=== PATIENT | female | born 1970 ===

== ENCOUNTER 2018-03-09 10:54 | Emergency (ER) | payer MEDICAID ==
[2018-03-09] MEDS ORDERED: Tetanus/Diphtheria Toxoids 0.5 ml Syringe IM ONE ×2 (11:19→11:24)
[2018-03-09 11:36] VITALS: RESP 16; O2SAT 100
[2018-03-09] MEDS ORDERED: Lidocaine 2% Inj (20ml) INFIL ONE (12:11)
[2018-03-09] MEDS ORDERED: Lidocaine 2% MPF (5 ml) Inj ONE (12:14)
--- NOTE | 2018-03-09 12:25 | C.PDOC ---
History Of Present Illness 47-year-old female, presents to the emergency department with complaints of a laceration to her left foot last night at 8pm. Patient states her cat broke an empty wine bottle, and while walking toward it, she stepped on glass that was in her path. She was seen at an urgent care this morning, where they injected her foot with "numbing medication" and sent to ED for further evaluation. Patient denies numbness/weakness, or any other associated symptoms. No other complaints at this time. Time Seen by Provider: 03/09/18 11:08 Chief Complaint (Nursing): Abnormal Skin Integrity History Per: Patient History/Exam Limitations: no limitations Onset/Duration Of Symptoms: Hrs Current Symptoms Are (Timing): Still Present Past Medical History Reviewed: Historical Data, Nursing Documentation, Vital Signs Vital Signs: Last Vital Signs Temp 98.9 F 03/09/18 14:24 Pulse 76 03/09/18 14:24 Resp 16 03/09/18 14:24 BP 128/74 03/09/18 14:24 Pulse Ox 100 03/09/18 14:24 Surgical History: Cholecystectomy Family History: States: No Known Family Hx - Social History Hx Alcohol Use: No Hx Substance Use: No - Immunization History Hx Tetanus Toxoid Vaccination: No Hx Influenza Vaccination: No Review Of Systems Musculoskeletal: Positive for: Other (laceration, left foot) Physical Exam - Physical Exam Appears: Non-toxic, No Acute Distress Skin: Normal Color, Warm, Dry, No Rash Head: Normacephalic Eye(s): bilateral: PERRL Nose: Normal Lips: Normal Appearing Neck: Normal ROM Respiratory: Other (no acute respiratory distress) Extremity: Normal ROM, Capillary Refill (<2 seconds), No Deformity, No Swelling , Other (3cm irregular, jagged laceration to the plantar aspect of left foot. Neurovascularly intact) Pulses: Left Dorsalis Pedis: Normal, Right Dorsalis Pedis: Normal Neurological/Psych: Oriented x3, Normal Speech ED Course And Treatment O2 Sat by Pulse Oximetry: 100 (RA) Pulse Ox Interpretation: Normal Progress Note: Tetanus shot given. Podiatry resident was paged. Will evaluate pt in ED Medical Decision Making Medical Decision Making: Patient xrays performed at the urgent care which show no fracture, no dislocation, and no foreign body seen. The patient was instructed that the risk of infection are present as the wound is > 12 hours. Also risk microscopic foreign body is possible as well. A dose of IV Ancef 2gm and Clindamycin was given. Wound was irrigated and sutured by the Podiatry resident and case was discussed with Dr. Zheng ([employer] Protector oncall). Disposition - Disposition Referrals: Janette Zheng DPM [Staff Provider] - Disposition: HOME/ ROUTINE Disposition Time: 13:30 Condition: STABLE Additional Instructions: Follow up with the Wildlife [facility] Game Protector in 2 days for wound check without fail. Return if worsened. Prescriptions: Cephalexin [Keflex] 500 mg PO TID #42 capsule Instructions: Laceration Repair Forms: [employer] [employer] (Hebrew) - Clinical Impression Clinical Impression: Foot laceration - Scribe Statement The provider has reviewed the documentation as recorded by the Scribe (Juliet Cho) All medical record entries made by the Scribe were at my direction and personally dictated by me. I have reviewed the chart and agree that the record accurately reflects my personal performance of the history, physical exam, medical decision making, and the department course for this patient. I have also personally directed, reviewed, and agree with the discharge instructions and disposition.
--- NOTE | 2018-03-09 12:31 | CP.PCM.CON ---
History of Present Illness - History of Present Illness History of Present Illness: Podiatry Consult Note- Dr. Zheng 47 y.o female with no PMH presents to the ED for left plantar foot laceration. Patient is at bedside with family member. Patient reports that yesterday she stepped on a big glass after her cat knocked it over. She reports she cleansed it at home and put a dressing over it. Reports taking Ibuprofen for pain which helped. She reports going to urgent care around 10am this morning in which they took cleansed her foot, took X-rays, and attempted to repair the laceration with difficulties. Was told to go to the ER to get sutured up. Patient reports 0 /10 pain however tenderness with palpation localized to the left foot. Denies nausea, fever, shortness of breath, chest pains, or chills. PMH: denies PSH: right knee surgery, gall bladder removal, tubal ligation, bilateral bunion surgery FH: mother- liver cirrhosis secondary to medication, father- Alzheimer, brothers - DM ALL: NKDA SH: denies drinking EtOH, denies smoking, denies illicit drug use MEDS: Ibuprofen Past Patient History - Past Social History Smoking Status: Never Smoked - PSYCHIATRIC Hx Substance Use: No - SURGICAL HISTORY Hx Surgeries: Yes Hx Cholecystectomy: Yes Hx Orthopedic Surgery: Yes (RT KNEE) Hx Tubal Ligation: Yes Other/Comment: BUNION SX - ANESTHESIA Hx Anesthesia: Yes Hx Anesthesia Reactions: No Meds Home Medications: Home Medication List Medication Instructions Recorded Confirmed Type Cephalexin [Keflex] 500 mg PO TID #42 capsule 03/09/18 Rx Allergies/Adverse Reactions: Allergies Allergy/AdvReac Type Severity Reaction Status Date / Time No Known Allergies Allergy Verified 03/09/18 11:04 Physical Exam - Constitutional Appears: Well, Non-toxic, No Acute Distress - Extremities Exam Extremities exam: Negative for: calf tenderness Additional comments: VASC: DP and PT 2/4 bilaterally, CFT < 3 seconds x 10 digits, temperature gradient WNL, mild localized non pitting edema noted to plantar foot ORTHO: pain with palpation to surrounding the plantar laceration NEURO: gross and protective sensation intact DERM: laceration measuring approximately 3 cm x . 3 cm x .3 cm down to the level of subcutaneous tissue noted to the lateral plantar aspect of left foot at mid arch, no tendons or bone exposed, wound base is granular, no active bleeding, no drainage, mild erythema surrounding laceration, no abscess, no fluctuate appreciated, no malodor, no streaking, no clinical signs of infection , no foreign body seen using pickup and hemostat or palpable - Neurological Exam Neurological exam: Alert, Oriented x3 - Psychiatric Exam Psychiatric exam: Normal Affect, Normal Mood Results - Vital Signs Recent Vital Signs: Last Vital Signs Temp 99.2 F 03/09/18 11:00 Pulse 78 03/09/18 11:00 Resp 16 03/09/18 11:00 BP 135/82 03/09/18 11:00 Pulse Ox 100 03/09/18 11:00 Assessment & Plan - Assessment and Plan (Free Text) Assessment: 47 y.o female with no PMH with left plantar foot laceration secondary to trauma , stable- no clinical signs of infection Plan: Patient examined and evaluated Discussed plan in detail with attending Dr. Zheng X-rays taken in urgent care reviewed- no foreign body appreciated, no dislocation, no fracture note Discussed with patient treatment plans and patient understands and agreeable to treatment plans Dose of Ancef and Clindamycin given in ED Tetanus toxoid given in ED 5 cc of 2% lidocaine plain injected in a V local block fashion to the laceration Cleansed laceration with copious amounts of saline mixed betadine In a sterile fashion manner, closure of laceration performed. Patient prep with betadine 3-0 vicryl and 4-0 prolene used to close laceration Cleansed with saline, dressed with xeroform soaked with betadine, dsd, and cling MACY compression applied Rx Keflex PO 10 days Patient to be NWB in surgical shoe with crutches Instructed to keep dressing c/d/i. Do not get wet Will follow up with Dr. Zheng in office within 1 week Thank you for allowing us to participate in patients care.
[2018-03-09] MEDS ORDERED: ceFAZolin 2 GM in Sodium Chloride 0.9% 100 ML IVPB ONE (12:45)
[2018-03-09 14:24] VITALS: BP 128/74; PULSE 76; TEMP 98.9
== END 2018-03-09 14:29 | disposition home or self-care (01) ==
LOC: C.ER 10:54
DX: S91.312D Laceration without foreign body, left foot, subsequent encounter (principal); W25.XXXD Contact with sharp glass, subsequent encounter; Z23 Encounter for immunization
CPT/HCPCS: 12002; 90471; 90714; 96365; 96367; 99285; J0690